=== PATIENT | female | born 1955 | race African-American/Black ===

== ENCOUNTER 2016-06-06 16:18 | Emergency (ER) | payer OTHER ==
[~2016-06-06] VITALS: Ht 162.6 cm; Wt 75.0 kg
[~2016-06-06 16:18] MED LIST: EMPA1TAB3 PO; ESOM1CAP16 PO; FLEX10TA PO; GABA100C4 PO; GLUC1000 PO; GLUC10TA3 PO; HYDR-3533 PO; HYDR12.56 PO; METO50TA PO; METR-1 PO; MONT10TA2 PO; PERC10TA27 PO; PRAV10 PO; VENL25TA14 PO; ZOFR4TAB3 SL
[2016-06-06 16:19] VITALS: BP 134/86; PULSE 101; RESP 18; TEMP 98.3; O2SAT 98
[2016-06-06] MEDS: RESP: ALBUTEROL 2.5 MG/IPRATROPIUM 0.5 MG NEB (SCH) INH ×3 (18:44→19:15)
[2016-06-06 18:47] VITALS: O2SAT 98
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
[2016-06-06 18:58] LABS: AUTOMATED NEUTROPHIL # 8.7 TH/MM3 (1.8-7.7); BASOPHIL # 0.1 TH/MM3 (0-0.2); BASOPHIL % 0.5 % (0.0-2.0); EOSINOPHIL % 0.4 % (0.0-4.0); HEMATOCRIT 38.6 % (35.0-46.0); HEMO FLAGS DIFF FINAL; LYMPH % 14.2 % (9.0-44.0); LYMPHOCYTE # 1.6 TH/MM3 (1.0-4.8); MEAN CELL VOLUME 86.3 FL (80.0-100.0); MEAN CORPUSCULAR HEMOGLOBIN 27.2 PG (27.0-34.0); MEAN CORPUSCULAR HGB CONC 31.5 % (32.0-36.0); MONO % 7.8 % (0.0-8.0); NEUT % 77.1 % (16.0-70.0); PLATELET COUNT 320 TH/MM3 (150-450); RED BLOOD COUNT 4.47 MIL/MM3 (4.00-5.30); RED CELL DISTRIBUTION WIDTH 15.9 % (11.6-17.2); WHITE BLOOD COUNT 11.3 TH/MM3 (4.0-11.0)
--- NOTE | 2016-06-06 19:04 | RADRPT ---
EXAM DATE/TIME: 06/06/2016 18:55 [facility] COMPARISON: No previous studies available for comparison. INDICATIONS : Shortness of breath for the past few days. MEDICAL HISTORY : None. SURGICAL HISTORY : Appendectomy. Hysterectomy.bilateral hip replacements ENCOUNTER: Initial ACUITY: 3 days PAIN SCORE: 0/10 LOCATION: Bilateral chest FINDINGS: A single view of the chest demonstrates the lungs to be symmetrically aerated without evidence of mas s, infiltrate or effusion. The cardiomediastinal contours are unremarkable. Osseous structures are intact. CONCLUSION: No acute disease. Carlos Rojas MD on June 06, 2016 at 19:02 Board Certified Radiologist. This report was verified electronically.
[2016-06-06 19:24] LABS: ANION GAP 9 MEQ/L (5-15); BICARBONATE 28.1 MEQ/L (21.0-32.0); BLOOD UREA NITROGEN 16 MG/DL (7-18); CHLORIDE 103 MEQ/L (98-107); GLOMERULAR FILTRATION RATE 54 ML/MIN (>89); MAGNESIUM 2.1 MG/DL (1.5-2.5); POTASSIUM 3.4 MEQ/L (3.5-5.1); SODIUM (NA) 140 MEQ/L (136-145)
[2016-06-06 19:28] LABS: CREATINE KINASE 224 U/L (26-192)
[2016-06-06 19:40] LABS: CKMB 1.9 NG/ML (0.5-3.6)
[2016-06-06 19:45] LABS: APTT (PATIENT) 27.5 SEC (24.3-30.1); INTERNATIONAL NORMALIZED RATIO 0.9 RATIO; PROTHROMBIN TIME - PATIENT 10.2 SEC (9.8-11.6)
[2016-06-06] MEDS ORDERED: GABA100C4 PO (21:35)
[2016-06-06] MEDS ORDERED: GLIP10TA6 PO (21:35)
[2016-06-06] MEDS ORDERED: CYCL1TAB29 PO (21:35)
[2016-06-06] MEDS ORDERED: MONT10TA2 PO (21:35)
[2016-06-06] MEDS ORDERED: GLUC1000 PO (21:35)
[2016-06-06] MEDS ORDERED: METO50TA PO (21:35)
[2016-06-06] MEDS ORDERED: PERC5TAB12 PO (21:35)
[2016-06-06] MEDS ORDERED: PRAV40TA2 PO (21:35)
[2016-06-06] MEDS ORDERED: HYDR12.56 PO (21:35)
[2016-06-06] MEDS ORDERED: EMPA1TAB3 PO (21:35)
--- NOTE | 2016-06-06 23:44 | PD ---
Physical Exam Narrative 61yo F with URI symptoms for a few days. Pt states she started with nasal congestion, then cough and sob. Pt also complained of popping in right ear while she coughed today. Had bilateral rib pains with cough. Denies any chest pain, n/v, abdominal pain, focal weakness or numbness. Pt seen at triage and given albuterol treatments who didnt really help her. Her main issue is nasal congestion. She has swelling in bilateral nasal turbinates. CXR showed no acute disease. Labs reviewed, mild leukocytosis at 11.3. Troponin negative. BNP negative. Creatinine mildly elevated at 1.23 but was higher in prior visit. D-dimer negative. Pt given robitussin and reevaluated. Pt with bilateral maxillary tenderness and states that her main concern is her nasal congestion and pain in her sinuses. Will give prescription for augmentin for sinusitis and instructed pt not to fill it until her symptoms last for at least 10 days since it is most likely viral. States she may have bacterial infection if she does not get better in 10-14 days. Pt is well appearing and speaking in complete sentences. Lungs are clear and return precautions given. Data Data Last Documented VS Vital Signs Date Time Temp Pulse Resp B/P Pulse Ox O2 Delivery O2 Flow Rate FiO2 06/06/16 18:47 98 21 06/06/16 16:19 98.3 101 18 134/86 Room Air Orders Complete Blood Count With Diff (06/06/16 18:35) Basic Metabolic Panel (Bmp) (06/06/16 18:35) B-Type Natriuretic Peptide (06/06/16 18:35) D-Dimer (06/06/16 18:35) Act Partial Throm Time (Ptt) (06/06/16 18:35) Prothrombin Time / Inr (Pt) (06/06/16 18:35) Magnesium (Mg) (06/06/16 18:35) Ckmb (Isoenzyme) Profile (06/06/16 18:35) Troponin I (06/06/16 18:35) Urinalysis - C+S If Indicated (06/06/16 18:35) Influenzae A/B Antigen (06/06/16 18:35) Electrocardiogram (06/06/16 18:35) Chest, Single Ap (06/06/16 18:35) Albuterol-Ipratropium Neb (Duoneb Neb) (06/06/16 18:45) CKMB (06/06/16 18:40) CKMB% (06/06/16 18:40) Guaifen-Cod 200-20 Mg/10ml Liq (Robituss (06/06/16 23:45) Labs Laboratory Tests Test 06/06/16 18:40 White Blood Count 11.3 TH/MM3 Red Blood Count 4.47 MIL/MM3 Hemoglobin 12.1 GM/DL Hematocrit 38.6 % Mean Corpuscular Volume 86.3 FL Mean Corpuscular Hemoglobin 27.2 PG Mean Corpuscular Hemoglobin 31.5 % Concent Red Cell Distribution Width 15.9 % Platelet Count 320 TH/MM3 Mean Platelet Volume 8.7 FL Neutrophils (%) (Auto) 77.1 % Lymphocytes (%) (Auto) 14.2 % Monocytes (%) (Auto) 7.8 % Eosinophils (%) (Auto) 0.4 % Basophils (%) (Auto) 0.5 % Neutrophils # (Auto) 8.7 TH/MM3 Lymphocytes # (Auto) 1.6 TH/MM3 Monocytes # (Auto) 0.9 TH/MM3 Eosinophils # (Auto) 0.0 TH/MM3 Basophils # (Auto) 0.1 TH/MM3 CBC Comment DIFF FINAL Differential Comment Prothrombin Time 10.2 SEC Prothromb Time International 0.9 RATIO Ratio Activated Partial 27.5 SEC Thromboplast Time D-Dimer Quantitative (PE/DVT) 0.39 MG/L FEU Sodium Level 140 MEQ/L Potassium Level 3.4 MEQ/L Chloride Level 103 MEQ/L Carbon Dioxide Level 28.1 MEQ/L Anion Gap 9 MEQ/L Blood Urea Nitrogen 16 MG/DL Creatinine 1.23 MG/DL Estimat Glomerular Filtration 54 ML/MIN Rate Random Glucose 117 MG/DL Calcium Level 9.5 MG/DL Magnesium Level 2.1 MG/DL Total Creatine Kinase 224 U/L Creatine Kinase MB 1.9 NG/ML Creatine Kinase MB % 0.8 % Troponin I LESS THAN 0.02 NG/ML B-Type Natriuretic Peptide LESS THAN 2 PG/ML MDM Supervised Visit with DIANN: Yes Interpretation(s) EKG: NSR 84bpm. LAD. No ST segment elevation or depression. Diagnosis Primary Impression: URI (upper respiratory infection) Qualified Code: J06.9 - Upper respiratory tract infection, unspecified type Patient Instructions: General Instructions Departure Forms: Tests/Procedures Additional Instruction: Please follow up with your PMD in 3-7 days. Return to the ED if symptoms worsen. Scripts Fluticasone Nasal [place] (Flonase Allergy Relief Nasal [place])50 Mcg/Act Spray50 Mcg EACH NARE BID #1 BOTTLE Ref 0 Prov:Carmen Miller DO 06/07/16 Dextromethorphan Polistirex Liq (Robitussin 12 Hour Cough Liq)30 Mg/5 Ml Sus5 Ml PO Q12H PRN (COUGH) 5 Days Ref 0 Prov:Carmen Miller DO 06/07/16 Amoxicillin-Clavulanate (Augmentin)875-125 mg Opd553 Mg PO BID 5 Days Ref 0 not for use in CrCl <30 ml/min. Prov:Carmne Miller DO 06/07/16 Disposition: 01 DISCHARGE HOME Condition: Stable Carmen Miller DO Jun 06, 2016 23:44
[2016-06-06] MEDS ORDERED: guaiFENesin/CODEINE SYRUP 200 MG/20 MG/10 ML CUP PO ONE (23:45)
[2016-06-07] MEDS ORDERED: AUGM875T PO (00:08)
[2016-06-07] MEDS ORDERED: DEXT1SUS PO (00:08)
[2016-06-07] MEDS ORDERED: FLUT1SPR5 EACH NARE (00:14)
--- NOTE | 2016-06-07 16:04 | EKG ---
Date Performed: 06/07/2016 Time Performed: 00:08:35 PTAGE: 61 years EKG: Sinus rhythm Compared to prior tracing no significant change NORMAL ECG PREVIOUS TRACING : 07/24/2006 22.16 DOCTOR: Geneva Novak Interpretating Date/Time 06/07/2016 15:59:41
== END 2016-06-07 00:25 | disposition home or self-care (01) ==
LOC: NEPA 16:18
DX: J06.9 Acute upper respiratory infection, unspecified (principal); I10 Essential (primary) hypertension; J45.909 Unspecified asthma, uncomplicated; E11.9 Type 2 diabetes mellitus without complications; R05 Cough; R07.81 Pleurodynia
CPT/HCPCS: 71010; 80048; 82550; 82552; 83735; 83880; 84484; 85025; 85379; 85610; 85730; 87804; 93005; 94664

== ENCOUNTER 2016-08-06 21:25 | Emergency (ER) | payer OTHER ==
[~2016-08-06] VITALS: Ht 162.6 cm; Wt 70.0 kg
[~2016-08-06 21:25] MED LIST changes: +AUGM875T PO; +CYCL1TAB29 PO; +DEXT1SUS PO; -ESOM1CAP16 PO; -FLEX10TA PO; +FLUT1SPR5 EACH NARE; +GLIP10TA6 PO; -GLUC10TA3 PO; -HYDR-3533 PO; -METR-1 PO; -PERC10TA27 PO; +PERC5TAB12 PO; -PRAV10 PO; +PRAV40TA2 PO; -VENL25TA14 PO; -ZOFR4TAB3 SL
[2016-08-06 21:27] VITALS: BP 123/75; PULSE 92; RESP 16; TEMP 90.4; O2SAT 99
[2016-08-06 22:38] VITALS: TEMP 98
[2016-08-07] MEDS ORDERED: IPRA17I INH (00:56)
[2016-08-07] MEDS ORDERED: ALBUAER3 INH (00:56)
[2016-08-07] MEDS ORDERED: NEBULIZER1 MI1 (00:56)
[2016-08-07 01:52] LABS: INTERNATIONAL NORMALIZED RATIO 0.9 RATIO; PROTHROMBIN TIME - PATIENT 10.4 SEC (9.8-11.6)
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
[2016-08-07 02:08] LABS: ALKALINE PHOSPHATASE 91 U/L (45-117); ALT (GPT) 34 U/L (10-53); TOTAL BILIRUBIN ADULT 0.2 MG/DL (0.2-1.0)
[2016-08-07 02:19] LABS: ANION GAP 7 MEQ/L (5-15); AST (GOT) 33 U/L (15-37); BICARBONATE 28.8 MEQ/L (21.0-32.0); BLOOD UREA NITROGEN 11 MG/DL (7-18); CHLORIDE 104 MEQ/L (98-107); GLOMERULAR FILTRATION RATE 61 ML/MIN (>89); MAGNESIUM 2.3 MG/DL (1.5-2.5); POTASSIUM 3.6 MEQ/L (3.5-5.1); SODIUM (NA) 140 MEQ/L (136-145)
--- NOTE | 2016-08-07 02:36 | RADRPT ---
EXAM DATE/TIME: 08/07/2016 01:58 [facility] COMPARISON: No previous studies available for comparison. INDICATIONS : Trauma, fall 2 days ago. MEDICAL HISTORY : Diabetes mellitus. Hypertension. Peripheral neuropathy. SURGICAL HISTORY : None. ENCOUNTER: Initial ACUITY: 2 days PAIN SCORE: 6/10 LOCATION: Right chest FINDINGS: PA and lateral views of the chest demonstrate the lungs to be symmetrically aerated without evidence of mass, infiltrate or effusion. The cardiomediastinal contours are unremarkable. Osseous structure s are intact. CONCLUSION: Normal examination. Miguel Gallegos Jr., MD on August 07, 2016 at 2:34 Board Certified Radiologist. This report was verified electronically.
--- NOTE | 2016-08-07 02:37 | RADRPT ---
EXAM DATE/TIME: 08/07/2016 02:04 [facility] COMPARISON: No previous studies available for comparison. INDICATIONS : Right hip pain, fall 2 days ago. MEDICAL HISTORY : None. SURGICAL HISTORY : Total right hip replacement. ENCOUNTER: Initial ACUITY: 2 days PAIN SCORE: 6/10 LOCATION: Right hip. FINDINGS: 4 views of the pelvis and right hip show bilateral hip prostheses. No fractures or dislocations. Veno us calcifications. Soft tissues are unremarkable. CONCLUSION: No acute disease. Miguel Gallegos Jr., MD on August 07, 2016 at 2:35 Board Certified Radiologist. This report was verified electronically.
--- NOTE | 2016-08-07 02:37 | RADRPT ---
EXAM DATE/TIME: 08/07/2016 02:04 [facility] COMPARISON: No previous studies available for comparison. INDICATIONS : Right shoulder pain, fall 2 days ago. MEDICAL HISTORY : None. SURGICAL HISTORY : None. ENCOUNTER: Initial ACUITY: 2 days PAIN SCORE: 7/10 LOCATION: Right shoulder. FINDINGS: Multiple view examination of the right shoulder demonstrates no evidence of fracture or dislocation. The glenohumeral and acromioclavicular joints are maintained. There is normal range of motion betwe en internal and external rotation. Bony mineralization is normal. CONCLUSION: Unremarkable examination of the right shoulder. Miguel Gallegos Jr., MD on August 07, 2016 at 2:35 Board Certified Radiologist. This report was verified electronically.
[2016-08-07 03:18] LABS: AUTOMATED NEUTROPHIL # 5.7 TH/MM3 (1.8-7.7); BASOPHIL % 0.4 % (0.0-2.0); EOSINOPHIL # 0.1 TH/MM3 (0-0.4); EOSINOPHIL % 1.1 % (0.0-4.0); HEMO FLAGS DIFF FINAL; LYMPH % 23.7 % (9.0-44.0); MEAN CELL VOLUME 84.3 FL (80.0-100.0); MEAN CORPUSCULAR HEMOGLOBIN 27.7 PG (27.0-34.0); MEAN CORPUSCULAR HGB CONC 32.8 % (32.0-36.0); MONO % 8.2 % (0.0-8.0); NEUT % 66.6 % (16.0-70.0); PLATELET COUNT 283 TH/MM3 (150-450); RED BLOOD COUNT 4.03 MIL/MM3 (4.00-5.30); RED CELL DISTRIBUTION WIDTH 14.5 % (11.6-17.2); WHITE BLOOD COUNT 8.5 TH/MM3 (4.0-11.0)
[2016-08-07] MEDS ORDERED: IOHEXOL 350 MG/ML 10 ML VIAL (for RAD DIAG) IV ONE (04:43)
[2016-08-07 04:52] VITALS: BP 180/86; PULSE 88; RESP 18; TEMP 98.1; O2SAT 99
--- NOTE | 2016-08-07 05:06 | RADRPT ---
EXAM DATE/TIME: 08/07/2016 04:35 [facility] COMPARISON: No previous studies available for comparison. INDICATIONS : Trauma, fell 3 days ago. Right sided neck pain. RADIATION DOSE: 34.23 CTDIvol (mGy) MEDICAL HISTORY : Gastroesophageal reflux disease. Diabetes mellitus type 2. SURGICAL HISTORY : Hysterectomy. Appendectomy. ENCOUNTER: Initial ACUITY: 3 days PAIN SCALE: 4/10 LOCATION: Right neck TECHNIQUE: Volumetric scanning of the cervical spine was performed. Multiplanar reconstructions in the sagittal, coronal and oblique axial planes were performed. Using automated exposure control and adjustment o f the mA and/or kV according to patient size, radiation dose was kept as low as reasonably achievable to obtain optimal diagnostic quality images. FINDINGS: VERTEBRAE: Normal vertebral body height. An anterior fusion plate is seen at C5-C6. ALIGNMENT: No evidence of subluxation. C2-C3: The bony spinal canal is normal in size. No evidence of disc bulge or herniation. The neural forami na are bilaterally patent. C3-C4: There is a mild broad-based disc bulge. No central canal stenosis. Bony uncovertebral hypertrophy. Ne ural foramina remain patent. C4-C5: There is a small central disc bulge. Central canal remain patent. Bony uncovertebral hypertrophy with out neural foraminal narrowing. C5-C6: This level is fused. Central canal and neural foramina are patent. C6-C7: The bony spinal canal is normal in size. No evidence of disc bulge or herniation. The neural forami na are bilaterally patent. C7-T1: The bony spinal canal is normal in size. No evidence of disc bulge or herniation. The neural forami na are bilaterally patent. CONCLUSION: 1. Anterior fusion C5-C6. 2. Degenerative changes as highlighted above. 3. No fracture or dislocation. Miguel Gallegos Jr., MD on August 07, 2016 at 5:01 Board Certified Radiologist. This report was verified electronically.
--- NOTE | 2016-08-07 05:08 | RADRPT ---
EXAM DATE/TIME: 08/07/2016 04:38 [facility] COMPARISON: CT ABDOMEN & PELVIS W CONTRAST, December 05, 2015, 6:00. INDICATIONS : Trauma, fall 3 days ago. Stomach pain. IV CONTRAST: 96 cc Omnipaque 350 (iohexol) IV ORAL CONTRAST: No oral contrast ingested. RADIATION DOSE: 12.26 CTDIvol (mGy) MEDICAL HISTORY : Gastroesophageal reflux disease. Diabetes mellitus type 2. SURGICAL HISTORY : Appendectomy. Hysterectomy.Bilateral hip replacements. ENCOUNTER: Initial ACUITY: 3 days PAIN SCALE: 4/10 LOCATION: upper quadrant abdomen TECHNIQUE: Volumetric scanning of the abdomen and pelvis was performed. Using automated exposure control and ad justment of the mA and/or kV according to patient size, radiation dose was kept as low as reasonably achievable to obtain optimal diagnostic quality images. FINDINGS: LOWER LUNGS: The visualized lower lungs are clear. LIVER: Homogeneous density without lesion. There is no dilation of the biliary tree. No calcified gallston es. SPLEEN: Normal size without lesion. PANCREAS: Within normal limits. KIDNEYS: Normal in size and shape. There is no mass, stone or hydronephrosis. ADRENAL GLANDS: Within normal limits. VASCULAR: There is no aortic aneurysm. BOWEL/MESENTERY: The stomach, small bowel, and colon demonstrate no acute abnormality. There is no free intraperitone al air or fluid. ABDOMINAL WALL: Within normal limits. RETROPERITONEUM: There is no lymphadenopathy. BLADDER: No wall thickening or mass. REPRODUCTIVE: Within normal limits. INGUINAL: There is no lymphadenopathy or hernia. MUSCULOSKELETAL: Within normal limits for patient age. Degenerative changes of lower lumbar spine. Bilateral hip impla nts. CONCLUSION: No acute disease. Miguel Gallegos Jr., MD on August 07, 2016 at 5:04 Board Certified Radiologist. This report was verified electronically.
[2016-08-07] MEDS ORDERED: ACETAMINOPHEN/HYDROcodone 325 MG/5 MG TAB PO ONE (06:15)
[2016-08-07] MEDS ORDERED: AUGM875T PO (06:23)
--- NOTE | 2016-08-07 10:33 | EKG ---
Date Performed: 08/07/2016 Time Performed: 01:30:06 PTAGE: 61 years EKG: Sinus rhythm NORMAL ECG PREVIOUS TRACING : 06/07/2016 00.08 DOCTOR: Charli Montenegro Interpretating Date/Time 08/07/2016 10:32:20
== END 2016-08-07 06:46 | disposition home or self-care (01) ==
LOC: NEPC 21:25
DX: R10.11 Right upper quadrant pain (principal); K08.89 Other specified disorders of teeth and supporting structures; M54.2 Cervicalgia; M25.511 Pain in right shoulder; M25.551 Pain in right hip; W01.0XXA Fall on same level from slipping, tripping and stumbling without subsequent striking against object, initial encounter; Z79.899 Other long term (current) drug therapy
CPT/HCPCS: 71020; 72125; 73030; 73502; 74177; 80053; 83690; 83735; 85025; 85610; 85730; 93005; 99284; Q9967